=== PATIENT | male | born 1985 | race Caucasian/White ===

== ENCOUNTER 2017-06-28 22:34 | Emergency (ER) | payer SELFPAY | END 2017-06-28 23:05 | LOC: ERS 22:34 | DX: S01.01XA Laceration without foreign body of scalp, initial encounter (principal); S00.81XA Abrasion of other part of head, initial encounter; F10.129 Alcohol abuse with intoxication, unspecified; W22.8XXA Striking against or struck by other objects, initial encounter | CPT/HCPCS: 99284 ==

== ENCOUNTER 2018-08-07 16:16 | Emergency (ER) | payer SELFPAY | END 2018-08-07 16:34 | disposition home or self-care (01) | LOC: SCSER 16:16 | DX: R05 Cough (principal); Z71.6 Tobacco abuse counseling | CPT/HCPCS: 99283 ==

== ENCOUNTER 2023-12-11 19:36 | Emergency (ER) | payer OTHER, SELFPAY ==
[~2023-12-11 19:36] MED LIST: Iopamidol-370 76% 500 ML MDV (1 ML CHARGE) ONE
[2023-12-11 20:46] LABS: #Basophils 0.05 10x3/uL (0.0-0.2); %Basophils 0.4 % (0.0-1.0); %Eosinophils 3.4 % (0.0-10.0); %Lymphocytes 20.6 % (21.0-51.0); %Monocytes 6.2 % (0.0-10.0); %Neutrophils 69.2 % (42.0-75.0); Hematocrit 47.7 % (42.0-52.0); Hemoglobin 16.5 g/dL (14.0-18.0); Mean Corpuscular HGB CONC 34.6 g/dL (32.0-36.0); Mean Corpuscular Hemoglobin 29.5 pg (27.0-31.0); Mean Corpuscular Volume 85.2 fL (78.0-98.0); Mean Platelet Volume 10.1 fL (7.4-10.4); Platelet Count 306 10x3/uL (130-400); RBC Distribution Width 12.1 % (11.5-14.5)
[2023-12-11 21:02] LABS: ALT (SGPT) 20 U/L (8-55); AST (SGOT) 17 U/L (5-34); Albumin 4.5 g/dL (3.5-5.0); Alkaline Phosphatase 60 U/L (40-110); Anion Gap 13 mmol/L (10-20); BUN (Urea Nitrogen) 11 mg/dL (8.9-20.6); Bilirubin, Total 1.3 mg/dL (0.2-1.2); Calc. Creatinine Clearance 0 mL/min (70-130); Calcium 10.2 mg/dL (7.8-10.44); Carbon Dioxide 27 mmol/L (22-29); Chloride 105 mmol/L (98-107); Estimated GFR 114; Globulin 3.1 g/dL (2.4-3.5); Glucose 98 mg/dL (70-105); Lipase 42 U/L (8-78); Potassium 4.6 mmol/L (3.5-5.1); Protein, Total 7.6 g/dL (6.0-8.3); Sodium 140 mmol/L (136-145)
[2023-12-11 21:10] LABS: Bacteria/HPF 2+ HPF (None Seen); Bilirubin Negative (Negative); Blood, Urine Negative (Negative); CAUTI Indications for Culture Pelvic or flank pain; Clarity Turbid (Clear); Glucose, Urine (Dipstick) Normal (Negative); Ketone, Urine Negative (Negative); Leukocyte Negative Leu/uL (Negative); Nitrite Negative (Negative); Protein, Urine (Dipstick) 50 mg/dL (Neg-Trace); RBC/HPF 0-3 HPF (0-3); Specific Gravity, Urine 1.025 (1.002-1.036); Squamous Epithelial None Seen HPF (0-3); Urobilinogen Normal mg/dL (Less than 2); pH, Urine 5.5 (5.0-9.0)
[2023-12-11 21:19] LABS: Urine Culture Reflex No No
== END 2023-12-11 22:45 | disposition home or self-care (01) ==
LOC: ERS 19:36
DX: N39.0 Urinary tract infection, site not specified (principal); K76.89 Other specified diseases of liver; N28.1 Cyst of kidney, acquired
CPT/HCPCS: 36415; 74177; 80053; 81001; 83690; 85025; Q9967